=== PATIENT | female | born 1950 | race Hispanic/Latino ===

== ENCOUNTER 2019-03-03 11:05 | Emergency (ER) | payer OTHER, MEDICARE ==
[2019-03-03] MEDS ORDERED: LIDOCAINE HCL 2% 20ML ONE (12:24)
[2019-03-03] MEDS ORDERED: PROPOFOL 10 MG/ML 20ML VIAL IV ONE (12:24)
[2019-03-03 13:27] LABS: BASOPHILS % (AUTO) 0.3 % (0.0-5.0); EOSINOPHILS % (AUTO) 3.7 % (0.0-8.0); HEMATOCRIT 37.3 % (36-48); LYMPHOCYTES % (AUTO) 30.7 % (21.0-51.0); MEAN CORPUSCULAR HEMOGLOBIN 28.2 pg (27.0-33.0); MEAN CORPUSCULAR HGB CONC 31.1 g/dL (32.0-36.0); MEAN CORPUSCULAR VOLUME 90.5 fL (79-99); MONOCYTES % (AUTO) 5.7 % (3.0-13.0); NEUTROPHILS % (AUTO) 59.3 % (40.0-77.0); PLATELET COUNT (AUTO) 252 K/uL (130-400); RED BLOOD CELL COUNT(AUTO) 4.12 MIL/uL (4.00-5.50); RED CELL DISTRIBUTION WIDTH 14.1 % (11.0-15.5); WHITE BLOOD COUNT (AUTO) 9.5 K/uL (4.8-10.8)
[2019-03-03 13:38] LABS: CREATININE 0.7 mg/dL (0.5-1.5); POTASSIUM 3.2 mmol/L (3.5-5.1)
[2019-03-03 13:39] LABS: INR 1.01 (0.85-1.15); PARTIAL THROMBOPLASTIN TIME 23.8 SEC (26.3-35.5); PROTHROMBIN TIME 10.6 SEC (9.6-11.6)
[2019-03-03 13:43] LABS: ALBUMIN 2.8 g/dL (3.5-5.0); BILIRUBIN,TOTAL 0.5 mg/dL (0.2-1.0); TOTAL PROTEIN, SERUM 6.7 g/dL (6.0-8.3)
== END 2019-03-03 14:31 | disposition home or self-care (01) ==
LOC: EDH 11:05
DX: T17.228A Food in pharynx causing other injury, initial encounter (principal); R13.10 Dysphagia, unspecified; I10 Essential (primary) hypertension; X58.XXXA Exposure to other specified factors, initial encounter; Y93.89 Activity, other specified; Y92.89 Other specified places as the place of occurrence of the external cause; Y99.8 Other external cause status
CPT/HCPCS: 36415; 43235; 80053; 84484; 85025; 85610; 85730; 93005; 99285; A4215 ×2; A4222; A4606; J2704; J3490

== ENCOUNTER → 2019-04-08 | Outpatient (CLI) | payer OTHER, MEDICARE | END | disposition home or self-care (01) | LOC: SHCH 13:07 | PROVIDERS: ATTEND Internal Medicine Cardiovascular Disease | DX: R06.9 Unspecified abnormalities of breathing (principal) | CPT/HCPCS: 93306 ==

== ENCOUNTER → 2019-04-12 | Outpatient (CLI) | payer OTHER, MEDICARE | END | disposition home or self-care (01) | LOC: SHCH 13:37 | PROVIDERS: ATTEND Internal Medicine Cardiovascular Disease | DX: I87.2 Venous insufficiency (chronic) (peripheral) (principal) | CPT/HCPCS: 93970 ==

== ENCOUNTER → 2020-01-02 | Outpatient (CLI) | payer OTHER, MEDICARE | END | disposition home or self-care (01) | LOC: SHCH 10:34 | PROVIDERS: ATTEND Internal Medicine Cardiovascular Disease | DX: I87.2 Venous insufficiency (chronic) (peripheral) (principal); Z09 Encounter for follow-up examination after completed treatment for conditions other than malignant neoplasm | CPT/HCPCS: 93971 ==

== ENCOUNTER → 2020-01-09 | Outpatient (CLI) | payer OTHER, MEDICARE | END | disposition home or self-care (01) | LOC: SHCH 08:50 | PROVIDERS: ATTEND Internal Medicine Cardiovascular Disease | DX: Z09 Encounter for follow-up examination after completed treatment for conditions other than malignant neoplasm (principal); I87.2 Venous insufficiency (chronic) (peripheral) | CPT/HCPCS: 93971 ==

== ENCOUNTER → 2020-01-23 | Outpatient (CLI) | payer OTHER, MEDICARE | END | disposition home or self-care (01) | LOC: SHCH 09:30 | PROVIDERS: ATTEND Internal Medicine Cardiovascular Disease | DX: Z09 Encounter for follow-up examination after completed treatment for conditions other than malignant neoplasm (principal); I87.2 Venous insufficiency (chronic) (peripheral) | CPT/HCPCS: 93971 ==

== ENCOUNTER → 2020-01-30 | Outpatient (CLI) | payer OTHER, MEDICARE | END | disposition home or self-care (01) | LOC: OIH 09:25 | PROVIDERS: ATTEND Internal Medicine Cardiovascular Disease | DX: Z09 Encounter for follow-up examination after completed treatment for conditions other than malignant neoplasm (principal); I87.2 Venous insufficiency (chronic) (peripheral) | CPT/HCPCS: 93971 ==

== ENCOUNTER → 2021-11-18 | Outpatient (CLI) | payer OTHER, MEDICARE ==
[~2021-11-18] MED LIST: LIDOCAINE HCL 4% LTA SOL 4 ML VIAL ONE
== END | disposition home or self-care (01) ==
LOC: WHH 10:13
PROVIDERS: ATTEND Family Medicine
DX: S41.102A Unspecified open wound of left upper arm, initial encounter (principal); S51.002A Unspecified open wound of left elbow, initial encounter; I10 Essential (primary) hypertension; E78.5 Hyperlipidemia, unspecified; I73.9 Peripheral vascular disease, unspecified; M19.90 Unspecified osteoarthritis, unspecified site; E66.9 Obesity, unspecified; Z68.36 Body mass index [BMI] 36.0-36.9, adult; Z79.899 Other long term (current) drug therapy; V89.2XXA Person injured in unspecified motor-vehicle accident, traffic, initial encounter; Y93.89 Activity, other specified; Y92.89 Other specified places as the place of occurrence of the external cause; Y99.8 Other external cause status
CPT/HCPCS: 11042; 11045; A6248; A4450

== ENCOUNTER → 2021-11-25 | Outpatient (CLI) | payer OTHER, MEDICARE | END | disposition home or self-care (01) | LOC: WHH 10:37 | PROVIDERS: ATTEND Family Medicine | DX: S41.102D Unspecified open wound of left upper arm, subsequent encounter (principal); S51.002D Unspecified open wound of left elbow, subsequent encounter; I10 Essential (primary) hypertension; E78.5 Hyperlipidemia, unspecified; I73.9 Peripheral vascular disease, unspecified; M19.90 Unspecified osteoarthritis, unspecified site; E66.9 Obesity, unspecified; Z68.36 Body mass index [BMI] 36.0-36.9, adult; Z79.899 Other long term (current) drug therapy; V89.2XXD Person injured in unspecified motor-vehicle accident, traffic, subsequent encounter | CPT/HCPCS: 11042; 11045 ==

== ENCOUNTER → 2021-12-05 | Outpatient (CLI) | payer OTHER, MEDICARE | END | disposition home or self-care (01) | LOC: WHH 08:47 | PROVIDERS: ATTEND Family Medicine | DX: S41.102D Unspecified open wound of left upper arm, subsequent encounter (principal); S51.002D Unspecified open wound of left elbow, subsequent encounter; I10 Essential (primary) hypertension; E78.5 Hyperlipidemia, unspecified; I73.9 Peripheral vascular disease, unspecified; M19.90 Unspecified osteoarthritis, unspecified site; E66.9 Obesity, unspecified; Z68.36 Body mass index [BMI] 36.0-36.9, adult; Z79.899 Other long term (current) drug therapy; V89.2XXD Person injured in unspecified motor-vehicle accident, traffic, subsequent encounter | CPT/HCPCS: 11042; 11045 ==

== ENCOUNTER → 2021-12-12 | Outpatient (CLI) | payer OTHER, MEDICARE | END | disposition home or self-care (01) | LOC: WHH 09:05 | PROVIDERS: ATTEND Family Medicine | DX: S41.102D Unspecified open wound of left upper arm, subsequent encounter (principal); S51.002D Unspecified open wound of left elbow, subsequent encounter; I10 Essential (primary) hypertension; E78.5 Hyperlipidemia, unspecified; I73.9 Peripheral vascular disease, unspecified; M19.90 Unspecified osteoarthritis, unspecified site; E66.9 Obesity, unspecified; Z68.36 Body mass index [BMI] 36.0-36.9, adult; Z79.899 Other long term (current) drug therapy; V89.2XXD Person injured in unspecified motor-vehicle accident, traffic, subsequent encounter | CPT/HCPCS: 11042; 11045 ==

== ENCOUNTER → 2022-01-02 | Outpatient (CLI) | payer OTHER, MEDICARE | END | disposition home or self-care (01) | LOC: WHH 08:22 | PROVIDERS: ATTEND Family Medicine | DX: S41.102D Unspecified open wound of left upper arm, subsequent encounter (principal); S51.002D Unspecified open wound of left elbow, subsequent encounter; I10 Essential (primary) hypertension; E78.5 Hyperlipidemia, unspecified; I73.9 Peripheral vascular disease, unspecified; M19.90 Unspecified osteoarthritis, unspecified site; E66.9 Obesity, unspecified; Z68.36 Body mass index [BMI] 36.0-36.9, adult; Z79.899 Other long term (current) drug therapy; V89.2XXD Person injured in unspecified motor-vehicle accident, traffic, subsequent encounter | CPT/HCPCS: 11042; 11045; A6209 ==

== ENCOUNTER → 2022-01-20 | Outpatient (CLI) | payer MEDICARE | END | disposition home or self-care (01) | LOC: WHH 08:56 | PROVIDERS: ATTEND Family Medicine | DX: S41.102D Unspecified open wound of left upper arm, subsequent encounter (principal); S51.002D Unspecified open wound of left elbow, subsequent encounter; I10 Essential (primary) hypertension; E78.5 Hyperlipidemia, unspecified; I73.9 Peripheral vascular disease, unspecified; M19.90 Unspecified osteoarthritis, unspecified site; E66.9 Obesity, unspecified; Z68.36 Body mass index [BMI] 36.0-36.9, adult; Z79.899 Other long term (current) drug therapy; V89.2XXD Person injured in unspecified motor-vehicle accident, traffic, subsequent encounter | CPT/HCPCS: C5271; C5272; A6197; A4450; Q4102; A6207; 15271; 15272 ==

== ENCOUNTER → 2022-01-27 | Outpatient (CLI) | payer MEDICARE | END | disposition home or self-care (01) | LOC: WHH 09:16 | PROVIDERS: ATTEND Family Medicine | DX: S41.102D Unspecified open wound of left upper arm, subsequent encounter (principal); S51.002D Unspecified open wound of left elbow, subsequent encounter; I10 Essential (primary) hypertension; E78.5 Hyperlipidemia, unspecified; I73.9 Peripheral vascular disease, unspecified; E66.9 Obesity, unspecified; M19.90 Unspecified osteoarthritis, unspecified site; Z68.36 Body mass index [BMI] 36.0-36.9, adult; Z79.899 Other long term (current) drug therapy; V89.2XXD Person injured in unspecified motor-vehicle accident, traffic, subsequent encounter | CPT/HCPCS: C5271; C5272; A6197; Q4102; A6207; 15271; 15272 ==

== ENCOUNTER → 2022-02-03 | Outpatient (CLI) | payer MEDICARE | END | disposition home or self-care (01) | LOC: WHH 09:13 | PROVIDERS: ATTEND Family Medicine | DX: S41.102D Unspecified open wound of left upper arm, subsequent encounter (principal); S51.002D Unspecified open wound of left elbow, subsequent encounter; I10 Essential (primary) hypertension; E78.5 Hyperlipidemia, unspecified; I73.9 Peripheral vascular disease, unspecified; E66.9 Obesity, unspecified; M19.90 Unspecified osteoarthritis, unspecified site; Z68.36 Body mass index [BMI] 36.0-36.9, adult; Z79.899 Other long term (current) drug therapy; V89.2XXD Person injured in unspecified motor-vehicle accident, traffic, subsequent encounter | CPT/HCPCS: C5271; C5272; A6197; Q4102; A6207; 15271; 15272 ==

== ENCOUNTER → 2022-02-11 | Outpatient (CLI) | payer MEDICARE | END | disposition home or self-care (01) | LOC: WHH 08:07 | PROVIDERS: ATTEND Family Medicine | DX: S41.102D Unspecified open wound of left upper arm, subsequent encounter (principal); S51.002D Unspecified open wound of left elbow, subsequent encounter; I10 Essential (primary) hypertension; E78.5 Hyperlipidemia, unspecified; I73.9 Peripheral vascular disease, unspecified; E66.9 Obesity, unspecified; M19.90 Unspecified osteoarthritis, unspecified site; Z68.36 Body mass index [BMI] 36.0-36.9, adult; V89.2XXD Person injured in unspecified motor-vehicle accident, traffic, subsequent encounter | CPT/HCPCS: C5271; C5272; A6197; Q4102; A6207; 15271; 15272 ==

== ENCOUNTER → 2022-03-03 | Outpatient (CLI) | payer OTHER, MEDICARE | END | disposition home or self-care (01) | LOC: WHH 08:31 | PROVIDERS: ATTEND Family Medicine | DX: S41.102D Unspecified open wound of left upper arm, subsequent encounter (principal); S51.002D Unspecified open wound of left elbow, subsequent encounter; I10 Essential (primary) hypertension; E78.5 Hyperlipidemia, unspecified; I73.9 Peripheral vascular disease, unspecified; E66.9 Obesity, unspecified; M19.90 Unspecified osteoarthritis, unspecified site; Z68.36 Body mass index [BMI] 36.0-36.9, adult; V89.2XXD Person injured in unspecified motor-vehicle accident, traffic, subsequent encounter | CPT/HCPCS: C5271; C5272; A6197; A4450; Q4102; A6207; 15271; 15272 ==

== ENCOUNTER → 2022-03-10 | Outpatient (CLI) | payer OTHER, MEDICARE | END | disposition home or self-care (01) | LOC: WHH 08:08 | PROVIDERS: ATTEND Family Medicine | DX: S41.102D Unspecified open wound of left upper arm, subsequent encounter (principal); I10 Essential (primary) hypertension; E78.5 Hyperlipidemia, unspecified; I73.9 Peripheral vascular disease, unspecified; E66.9 Obesity, unspecified; M19.90 Unspecified osteoarthritis, unspecified site; Z68.36 Body mass index [BMI] 36.0-36.9, adult; V89.2XXD Person injured in unspecified motor-vehicle accident, traffic, subsequent encounter | CPT/HCPCS: C5271; C5272; A6197; Q4102 ×2; A6207 ==

== ENCOUNTER → 2022-03-27 | Outpatient (CLI) | payer OTHER, MEDICARE | END | disposition home or self-care (01) | LOC: WHH 10:44 | PROVIDERS: ATTEND Family Medicine | DX: S41.102D Unspecified open wound of left upper arm, subsequent encounter (principal); I10 Essential (primary) hypertension; E78.5 Hyperlipidemia, unspecified; I73.9 Peripheral vascular disease, unspecified; E66.9 Obesity, unspecified; M19.90 Unspecified osteoarthritis, unspecified site; Z68.36 Body mass index [BMI] 36.0-36.9, adult; V89.2XXD Person injured in unspecified motor-vehicle accident, traffic, subsequent encounter | CPT/HCPCS: C5271; C5272; A6197; Q4102 ×2; A6207 ==

== ENCOUNTER → 2022-04-07 | Outpatient (CLI) | payer OTHER, MEDICARE ==
[~2022-04-07] MED LIST changes: +HONEY 1 APPL/ML TUBE TP ONE
== END | disposition home or self-care (01) ==
LOC: WHH 08:08
PROVIDERS: ATTEND Family Medicine
DX: S41.102D Unspecified open wound of left upper arm, subsequent encounter (principal); I10 Essential (primary) hypertension; E78.5 Hyperlipidemia, unspecified; I73.9 Peripheral vascular disease, unspecified; E66.9 Obesity, unspecified; M19.90 Unspecified osteoarthritis, unspecified site; Z68.36 Body mass index [BMI] 36.0-36.9, adult; V89.2XXD Person injured in unspecified motor-vehicle accident, traffic, subsequent encounter
CPT/HCPCS: 11042; 11045; A6209; A4450